=== PATIENT | female | born 1995 | race Caucasian/White ===

== ENCOUNTER 2023-02-10 17:14 | Emergency (ER) | payer MEDICAID ==
[2023-02-10 17:24] VITALS: BP 126/60; PULSE 78
== END 2023-02-10 19:44 | disposition home or self-care (01) ==
LOC: JD.ED 17:14
DX: S97.81XA Crushing injury of right foot, initial encounter (principal); Z72.0 Tobacco use; W54.1XXA Struck by dog, initial encounter
CPT/HCPCS: 73630-26-RT; 73630-RT; 99283

== ENCOUNTER 2024-01-01 07:04 | Emergency (ER) | payer SELFPAY ==
[2024-01-01] MEDS: Acetaminophen/oxyCODONE 325-5 MG Tab PO ONE (08:16)
[2024-01-01] MEDS: Prochlorperazine 5 MG Tab PO ONE (08:16)
[2024-01-01 09:58] VITALS: BP 110/75; PULSE 75
== END 2024-01-01 09:17 | disposition home or self-care (01) ==
LOC: JD.ED 07:04
DX: S30.1XXA Contusion of abdominal wall, initial encounter (principal); S20.222A Contusion of left back wall of thorax, initial encounter; Y04.8XXA Assault by other bodily force, initial encounter
CPT/HCPCS: 70450; 71046; 72125; 99284; A9270; Q0164

== ENCOUNTER 2024-01-06 02:15 | Emergency (ER) | payer SELFPAY ==
[2024-01-06 02:51] LABS: BASOPHILS PERCENT AUTO 0.4 % (0.0-1.0); EOSINOPHILS ABSOLUTE AUTO 0.2 K/mm3 (0.0-0.4); EOSINOPHILS PERCENT AUTO 2.4 % (0.0-6.0); HEMATOCRIT 39.7 % (37.0-47.0); HEMOGLOBIN 13.7 gm/dl (12.0-16.0); IMMATURE GRAN ABSOLUTE AUTO 0.02 K/mm3 (0.00-0.05); IMMATURE GRAN PERCENT AUTO 0.2 % (0.0-0.4); LYMPHOCYTES ABSOLUTE AUTO 2.1 K/mm3 (1.0-4.8); LYMPHOCYTES PERCENT AUTO 25.9 % (24.0-44.0); MEAN CORPUSCULAR HEMOGLOBIN 32.3 pg (28.0-32.0); MEAN CORPUSCULAR HGB CONC 34.5 g/dl (32.0-36.0); MEAN CORPUSCULAR VOLUME 93.6 fl (83.0-99.0); MEAN PLATELET VOLUME 9.2 fl (9.4-12.3); MONOCYTES ABSOLUTE AUTO 0.4 K/mm3 (0.0-0.8); MONOCYTES PERCENT AUTO 5.3 % (0.0-8.0); NEUTROPHILS ABSOLUTE AUTO 5.4 K/mm3 (1.8-7.7); NEUTROPHILS PERCENT AUTO 65.8 % (41.0-71.0); PLATELET COUNT,PLT 208 K/mm3 (150-400); RED BLOOD CELL COUNT 4.24 M/mm3 (4.10-5.30); WHITE BLOOD CELL COUNT,WBC 8.25 K/mm3 (3.9-11.3)
[2024-01-06 03:15] LABS: A/G RATIO 1.5 (1-2); ALBUMIN 3.7 g/dl (3.4-5.0); ANION GAP 10.7 (5-15); BILIRUBIN TOTAL 0.3 mg/dL (0.2-1.0); CALCIUM 8.1 mg/dL (8.5-10.1); CREATININE 0.8 mg/dL (0.55-1.02); EST CRCL DRUG DOSING (CG) 83.54 mL/min; MAGNESIUM 1.7 mg/dL (1.8-2.4); POTASSIUM,K 3.7 mEq/L (3.5-5.1); PROTEIN TOTAL,TP 6.1 g/dl (6.4-8.2)
[2024-01-06 04:25] VITALS: BP 104/55; PULSE 74
== END 2024-01-06 04:10 | disposition home or self-care (01) ==
LOC: JD.ED 02:15
DX: R04.2 Hemoptysis (principal); R04.0 Epistaxis
CPT/HCPCS: 36415; 80053; 80307; 83735; 84703; 85025; 99282; 99284

== ENCOUNTER 2024-04-23 09:05 | Emergency (ER) | payer SELFPAY ==
[2024-04-23 09:35] VITALS: BP 120/77; PULSE 82
== END 2024-04-23 09:54 | disposition left against medical advice (07) ==
LOC: JD.ED 09:05 → EEVIPCON 09:05 → JD.ED 09:54
DX: Z53.21 Procedure and treatment not carried out due to patient leaving prior to being seen by health care provider (principal)